=== PATIENT | male | born 1995 | race Caucasian/White ===

== ENCOUNTER 2020-10-01 12:05 | Emergency (ER) | payer SELFPAY ==
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
[2020-10-01 12:54] VITALS: BP 131/69; PULSE 70; RESP 16; TEMP 35.6; O2SAT 97; BMI 24.3
[2020-10-01 13:56] LABS: MANUAL DIFF FLAG NO
--- NOTE | 2020-10-01 14:02 | PC.NURSE ---
[employer] at bedside
[2020-10-01 14:03] LABS: Basophils Percent Auto 0.6 % (0-2); Eosinophils Absolute Auto 0.3 X10*3/uL (0.0-0.4); Eosinophils Percent Auto 5.2 % (0-4); Hematocrit 42.6 % (42-52); Hemoglobin 14.5 g/dl (14.0-18.0); Lymphocytes Absolute Auto 2.1 X10*3/uL (1.2-4.9); Lymphocytes Percent Auto 33.5 % (20-40); Mean Corpuscular Hemoglobin 29.5 pg (27.0-33.0); Mean Corpuscular Volume 86.8 fL (80-98); Mean Platelet Volume 9.3 fL (9.4-12.4); Monocytes Absolute Auto 0.7 X10*3/uL (0.1-1.2); Monocytes Percent Auto 10.8 % (2-11); Neutrophils Absolute Auto 3.2 X10*3/uL (2.0-8.3); Neutrophils Percent Auto 49.9 % (45-73); Platelet Count 266 X10*3/uL (160-400); Red Blood Count 4.91 X10*6/uL (4.60-5.80); Red Cell Distribution Width 11.9 % (11.0-16.0); White Blood Count 6.4 X10*3/uL (4.8-10.8)
[2020-10-01 14:22] LABS: Ethanol < 10 mg/dL
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
[2020-10-01 14:24] LABS: Chloride 104 mmol/L (96-108); Potassium 4.2 mmol/l (3.3-5.1); Sodium 139 mmol/L (135-145)
[2020-10-01 14:25] LABS: Alanine Aminotransferase 19 U/L (0-40); Albumin Level 4.9 g/dL (3.5-5.0); Alkaline Phosphatase 58 U/L (39-117); Anion Gap 12 (12-20); Aspartate Amino Transferase 19 U/L (5-37); Bilirubin Direct 0.3 mg/dL (0.0-0.5); Bilirubin Total 0.6 mg/dL (0.0-1.0); Blood Urea Nitrogen 13 mg/dL (9-16); Calcium 9.4 mg/dL (8.4-10.2); Carbon Dioxide 27 mmol/L (22-29); Creatinine Clr Calc Pharmacy 117.5; Estimated Glomerular Filt Rate > 60; Glucose Random 88 mg/dL (60-115); Total Protein 7.4 g/dL (6.5-8.0)
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
[2020-10-01 14:35] LABS: Amphetamine Screen Urine Not Detected (Not Detect); Barbiturates, Urine Not Detected (Not Detect); Benzodiazepines Screen Urine Not Detected (Not Detect); Cannabinoid Screen Urine POSITIVE (Not Detect); Cocaine Screen Urine Not Detected (Not Detect); Opiate Screen Urine Not Detected (Not Detect); Phencyclidine Screen Urine Not Detected (Not Detect)
[2020-10-01 15:42] VITALS: BP 113/55; PULSE 54; RESP 15; TEMP 36.1; O2SAT 98
--- NOTE | 2020-10-01 18:08 | PC.NURSE ---
[facility] at bedside
--- NOTE | 2020-10-01 19:41 | PC.NURSE ---
PT ALERT AND RESTING IN STRETCHER AT THIS TIME. PT ON 1:1 OBS. WILL CONTINUE TO MONITOR PT.
--- NOTE | 2020-10-01 21:56 | PC.NURSE ---
Patient just got transferred from main ED, alert and oriented, able to verify allergy information, reported he was off medication for very long time, pharmacy that he used is [facility], updated as ordered.
--- NOTE | 2020-10-01 23:08 | PC.NURSE ---
DARRYN faxed/called/spoke with Gareth/notified patient is [facility] bed search.
--- NOTE | 2020-10-01 23:56 | PC.NURSE ---
Patient just got up requesting for drinks and blanket, patient calm and pleasant, denied distress, will continue to monitor.
[2020-10-02] VITALS (8 sets, daily range): BP systolic 125–132; BP diastolic 62–97; PULSE 56–73; RESP 16–20; TEMP 36.5–36.8; O2SAT 96–99
--- NOTE | 2020-10-02 01:20 | PC.NURSE ---
Patient in bed appears sleeping, no distress observed/reported, respiration +/=/non-labored bilaterally, will continue to monitor and provide comfort
--- NOTE | 2020-10-02 04:06 | PC.NURSE ---
Patient in bed appears sleeping, no distress observed/reported, respiration +/=/non-labored bilaterally, will continue to monitor.
--- NOTE | 2020-10-02 06:41 | PC.NURSE ---
Patient currently in his in bed lying, talking with staff member, pleasant and cooperative, denied distress, VSS, belonging inventoried, will continue to monitor the patient.
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
--- NOTE | 2020-10-02 10:56 | PC.NURSE ---
Pt in room, awake, resting. BHN in to see pt.
--- NOTE | 2020-10-02 14:05 | PC.NURSE ---
Pt resting, resp unlabored
--- NOTE | 2020-10-02 17:02 | PC.NURSE ---
Pt resting in room, resp unlabored.
[2020-10-02 18:09] LABS: COVID-19 Test Negative (Negative)
--- NOTE | 2020-10-02 19:35 | PC.NURSE ---
Patient calm and quiet in his room, no distress reported, patient is aware that there is no bed available at [facility] at this time, will continue to monitor.
--- NOTE | 2020-10-02 23:36 | PC.NURSE ---
Patient in bed appears sleeping, no distress observed/reported, respiration +/=/non-labored bilaterally, will continue to monitor.
--- NOTE | 2020-10-03 02:27 | PC.NURSE ---
Patient in bed appears sleeping, no distress observed/reported, respiration +/=/no-labored bilaterally, will continue to monitor.
[2020-10-03 06:21] VITALS: BP 114/45; PULSE 69; RESP 16; TEMP 37.2; O2SAT 97
--- NOTE | 2020-10-03 07:09 | PC.NURSE ---
REPORT TAKEN FROM LONA ROCHE. PT UP AND AMBULATED TO BATHROOM. REMAINS CALM. EATING BREAKFAST IN ROOM AT THIS TIME. WAITING BED SEARCH.
--- NOTE | 2020-10-03 10:53 | PC.NURSE ---
[facility] at bedside
[2020-10-03 11:20] VITALS: BP 127/78; PULSE 75; TEMP 36.9; O2SAT 98
== END 2020-10-03 13:51 | disposition home or self-care (01) ==
PROVIDERS: Physician Assistant; Emergency Provider Emergency Medicine
DX: F33.1 Major depressive disorder, recurrent, moderate (principal); F14.10 Cocaine abuse, uncomplicated; F12.10 Cannabis abuse, uncomplicated; Z20.828 Contact with and (suspected) exposure to other viral communicable diseases
CPT/HCPCS: 36415; 80048; 80076; 80307; 80320; 85025; 87635; 99284